=== PATIENT | male | born 1980 | race African-American/Black ===

== ENCOUNTER 2016-07-06 13:29 | Emergency (ER) | payer OTHER ==
[~2016-07-06] VITALS: Ht 180.3 cm; Wt 106.8 kg
[2016-07-06 13:32] VITALS: BP 164/84; PULSE 87; RESP 15; TEMP 98; O2SAT 100
[2016-07-06] MEDS ORDERED: APIX5TAB PO (15:29)
[2016-07-06] MEDS ORDERED: HYDR-3516 PO (15:29)
--- NOTE | 2016-07-06 16:14 | PD ---
HPI Chief Complaint: GI Complaint Time Seen by Provider: 16:10 Travel History International Travel<30 days: No Contact w/Intl Traveler<30days: No Traveled to known affect area: No History of Present Illness HPI 36-year-old male presents to emergency Department with complaint of continued pain after being diagnosed with hemorrhoids on Thursday evening by [facility]. He was given hydrocodone which she has taken with no relief of pain. Pain is aggravated when he puts pressure on his behind. He denies blood in his stool. Has bowel movement was Thursday evening. This is tried urinating twice while here in the ER and cannot initiate urination. He last voided this morning and it was normal without dysuria, hematuria. Denies testicular swelling, pain. Denies penile pain, drainage. Denies abdominal pain. Denies fever, chills, nausea, vomiting. Dr. Whaley is primary care provider. No known allergies. No other modifying factors or associated signs and symptoms. PFSH Past Medical History Hx Anticoagulant Therapy: Yes (ELIQUIS) Social History Tobacco Use: No Allergies-Medications (Allergen,Severity, Reaction): Coded Allergies: No Known Allergies (Unverified , 07/06/16) Reported Meds & Prescriptions Reported Meds & Active Scripts Active Reported Hydrocodone-Acetaminophen 5-325 mg Tab 1 Tab PO Q4H PRN Eliquis (Apixaban) 5 Mg Tab 5 Mg PO BID Review of Systems Except as stated in HPI: all other systems reviewed are Neg Physical Exam Narrative GENERAL: Well-nourished, well-developed male patient, in no acute distress; afebrile, nontoxic-appearing SKIN: Warm and dry. HEAD: Atraumatic. Normocephalic. EYES: Pupils equal and round. No scleral icterus. No injection or drainage. ENT: Mucosa pink and moist. Airway patent. NECK: Trachea midline. CARDIOVASCULAR: Regular rate and rhythm. RESPIRATORY: No accessory muscle use. GASTROINTESTINAL: Abdomen soft, non-tender, nondistended. Hepatic and splenic margins not palpable. Bowel sounds are active 4 quadrants. No guarding. Nonrigid. No rebound tenderness. Bladder tenderness on palpation. RECTAL EXAM: With two soft masses with tenderness on palpation. Stool is brown. No visualized external hemorrhoids. MUSCULOSKELETAL: No obvious deformities. No clubbing. No cyanosis. No edema. NEUROLOGICAL: Awake and alert. Oriented 3. No obvious cranial nerve deficits. Motor grossly within normal limits. Normal speech. PSYCHIATRIC: Appropriate mood and affect; insight and judgment normal. Data Data Last Documented VS Vital Signs Date Time Temp Pulse Resp B/P Pulse Ox O2 Delivery O2 Flow Rate FiO2 07/06/16 13:32 98.0 87 15 164/84 100 Orders Urinalysis - C+S If Indicated (07/06/16 16:22) Gc And Chlamydia Pcr (07/06/16 16:22) Labs Laboratory Tests Test 07/06/16 17:05 Urine Color YELLOW Urine Turbidity CLEAR Urine pH 5.5 Urine Specific [place] 1.035 Urine Protein 30 mg/dL Urine Glucose (UA) NEG mg/dL Urine Ketones 10 mg/dL Urine Occult Blood MOD Urine Nitrite NEG Urine Bilirubin NEG Urine Urobilinogen LESS THAN 2.0 MG/DL Urine Leukocyte Esterase NEG Urine RBC 9 /hpf Urine WBC 2 /hpf Urine Squamous Epithelial <1 /hpf Cells Urine Mucus FEW /lpf Microscopic Urinalysis Comment CULT NOT INDICATED MDM Medical Decision Making Medical Screen Exam Complete: Yes Emergency Medical Condition: Yes Medical Record Reviewed: Yes Differential Diagnosis Hemorrhoids, prostate enlargement, urinary tract infection, gonorrhea, chlamydia Narrative Course 36-year-old male with rectal pain since Thursday. Was seen at [facility] and diagnosed with hemorrhoids and treated. He has had continued pain. Was complaining of not being able to initiate urine while here in the ER. 1621: I spoke with Dr. Blair, the attending physician, and she recommended a bladder scan, urinalysis and urine chlamydia and gonorrhea. 1652: Bladder scan done and shows 318 mL of retained urine. 1706: Patient voided about 400mL. Urinalysis sent. Urine Chlamydia and gonorrhea ending. 1724: Urinalysis without signs of infection. patient to follow up with patient ombudsperson. Instructed patient to continue medications as prescribed. Patient verbalized understanding and agreement with treatment plan. Patient is medically cleared and stable for discharge. Discussed reasons to return to the emergency department. Instructed patient to follow up with primary care provider. Patient agrees with treatment plan. The patients vital signs are stable and the patient is stable for outpatient follow-up and treatment. Patient discharged home, stable and in no acute distress. Diagnosis Primary Impression: Rectal pain Referrals: [facility] Primary Care Physician Patient Instructions: General Instructions Departure Forms: Tests/Procedures, Work Release Enter return to work date: Jul 09, 2016 Additional Instructions: Continue medications as prescribed Follow-up with patient ombudsperson Follow-up with primary care provider Return to the emergency department immediately with worsening of symptoms Med/Other Pt SpecificInfo: No Change to Meds, No Meds Exist/No RX given Disposition: 01 DISCHARGE HOME Condition: Stable Smita Oneal Jul 06, 2016 16:14
[2016-07-06 17:17] LABS: BLOOD, URINE MOD (NEG); GLUCOSE,URINE NEG (NEG); KETONE, URINE 10 mg/dL (NEG); MUCUS URINE FEW /lpf (OCC); NITRITE,URINE NEG (NEG); PH, URINE 5.5 (5.0-8.5); SQUAMOUS EPITHELIAL CELL URINE <1 /hpf (0-5); URINE COLOR YELLOW (YELLW/STRAW)
[2016-07-06 17:20] LABS: COMMENT (UR) CULT NOT INDICATED; CULTURE IF INDICATED CULT NOT INDICATED
[2016-07-06 19:58] LABS: CHLAMYDIA PCR NOT DETECTED (NOT DETECT); NEISSERIA PCR NOT DETECTED (NOT DETECT)
== END 2016-07-06 17:41 | disposition home or self-care (01) ==
LOC: NEPB 13:29
DX: K62.89 Other specified diseases of anus and rectum (principal); Z79.01 Long term (current) use of anticoagulants
CPT/HCPCS: 81001; 87491; 87591; 99283